=== PATIENT | male | born 1970 | race Caucasian/White ===

== ENCOUNTER → 2018-08-29 | Outpatient (CLI) | payer OTHER ==
[~2018-08-29] VITALS: Ht 175.3 cm; Wt 90.3 kg
[~2018-08-29] MED LIST: ALEVE 220MG220 MG PO; MOTRIN 200200 MG/TAB PO
[2018-08-29 09:21] VITALS: BP 148/91; PULSE 75
[2018-08-29 10:20] VITALS: BP 146/90; PULSE 58
== END ==
LOC: COL.RAD 09:00
DX: E04.2 Nontoxic multinodular goiter (principal)